=== PATIENT | female | born 1985 | race Caucasian/White ===

== ENCOUNTER 2020-02-15 17:21 | Emergency (ER) | payer BC, OTHER ==
[~2020-02-15] VITALS: Ht 162.6 cm; Wt 97.5 kg
[2020-02-15] MEDS ORDERED: LOMAIRA8 MG PO (19:34)
[2020-02-15] MEDS ORDERED: SERTRALINE HCL100 MG PO (19:34)
[2020-02-15 20:12] LABS: URINE BILIRUBIN NEGATIVE (Negative); URINE BLOOD NEGATIVE (Negative); URINE CLARITY CLEAR; URINE COLOR YELLOW; URINE GLUCOSE-RANDOM* NEGATIVE (Negative); URINE KETONES NEGATIVE (Negative); URINE NITRITE-REFLEX NEGATIVE (Negative); URINE PROTEIN (DIPSTICK) NEGATIVE (Negative); URINE SPECIFIC GRAVITY 1.015 (1.005-1.035)
[2020-02-15 20:15] LABS: URINE LEUKOCYTES-REFLEX 2+ (Negative)
[2020-02-15 20:20] LABS: BACTERIA-REFLEX 1-9 Few /HPF (None Seen); SQUAMOUS 4-10 Moderate /LPF (0-3); URINE RBC None Seen /HPF (0-2); URINE WBC-REFLEX 6-15 Few /HPF (0-5)
[2020-02-15 20:21] LABS: CASTS None Seen /LPF (None Seen); CRYSTALS None Seen /LPF (None Seen)
[2020-02-15] MEDS ORDERED: KEFLEX500 M1 PO (22:46)
[2020-02-15] MEDS ORDERED: NORFLEX100 MG PO (22:46)
[2020-02-15] MEDS ORDERED: NAPROSYN500 MG PO (22:46)
[2020-02-15 23:02] VITALS: BP 117/66
== END 2020-02-15 23:03 | disposition home or self-care (01) ==
LOC: ER 17:21
PROVIDERS: Physician Assistant
DX: U07.1 COVID-19 (principal); R51.9 Headache, unspecified; M54.5 Low back pain; N39.0 Urinary tract infection, site not specified; Z79.899 Other long term (current) drug therapy

== ENCOUNTER 2020-02-26 12:29 | Emergency (ER) | payer BC, OTHER ==
[~2020-02-26] VITALS: Ht 162.6 cm; Wt 95.3 kg
[~2020-02-26 12:29] MED LIST: KEFLEX500 M1 PO; LOMAIRA8 MG PO; NAPROSYN500 MG PO; NORFLEX100 MG PO; SERTRALINE HCL100 MG PO
[2020-02-26 12:44] VITALS: BP 109/68
== END 2020-02-26 17:40 | disposition home or self-care (01) ==
LOC: ER 12:29
DX: M25.552 Pain in left hip (principal); M25.551 Pain in right hip; M25.562 Pain in left knee; M25.561 Pain in right knee; M25.572 Pain in left ankle and joints of left foot; M25.571 Pain in right ankle and joints of right foot; Z79.899 Other long term (current) drug therapy